=== PATIENT | female | born 1995 | race Caucasian/White ===

== ENCOUNTER → 2021-06-17 | Day surgery (SDC) | payer OTHER ==
[~2021-06-17] VITALS: Ht 149.9 cm; Wt 86.2 kg
[~2021-06-17] MED LIST: ALBUTEROL0.63 MG/3 INH; CHOLESTYRAMINE P4 GM PO; IRON240 MG PO; PRILOSEC20 MG PO; PROAIR HFA8.5 GM INH; PROPRANOLOL HCL20 MG PO; SUMATRIPTAN SUC50 MG PO; TOPIRAMATE25 MG PO; VITAMIN D250 MCG PO
[2021-06-17 10:33] LABS: HCG (URINE) SCREEN NEGATIVE (NEGATIVE)
[2021-06-17 10:44] LABS: BASOPHIL 0.7 % (0-2); EOSINOPHIL 0 % (0-5); HCT 35.6 % (37.0-47.0); HGB 10.7 g/dl (12.5-16.0); LYMPHOCYTE 17.7 % (15-48); MCH 22.3 pg (25.0-31.0); MCHC 30.1 g/dL (32.0-36.0); MCV 74.3 fL (78.0-100.0); MONOCYTE 6.4 % (0-12); MPV 9.8 fL (6.0-9.5); NEUTROPHIL 75.1 % (41-80); NRBC 0; PLT 331 K/uL (150-400); RBC 4.79 M/uL (4.20-5.40); WBC 7.6 K/uL (4.0-10.5)
[2021-06-17 11:00] LABS: BUN/CREAT RATIO (CALC) 9.5 RATIO; CREATININE 0.63 mg/dL (0.51-0.95); POTASSIUM 3.8 mmol/L (3.5-5.1)
== END | disposition home or self-care (01) ==
LOC: FAS 03-25 08:00
PROVIDERS: Oral & Maxillofacial Surgery
DX: K01.1 Impacted teeth (principal); Q79.60 Ehlers-Danlos syndrome, unspecified; E66.9 Obesity, unspecified; J45.909 Unspecified asthma, uncomplicated; Z68.38 Body mass index [BMI] 38.0-38.9, adult; Z88.1 Allergy status to other antibiotic agents; Z88.8 Allergy status to other drugs, medicaments and biological substances
CPT/HCPCS: D7140 ×2; D7210 ×2; 36415; 80048; 84703; 85025; 90714; J1100; J2250; J2405; J2704; J3010; J7120